=== PATIENT | female | born 2000 | race Caucasian/White ===

== ENCOUNTER 2023-07-03 15:10 | Outpatient (CLI) | payer OTHER, SELFPAY | END 2023-07-03 15:11 | disposition home or self-care (01) | LOC: NFLDREF 07-05 13:25 | PROVIDERS: Visit Provider Registered Nurse | DX: N89.8 Other specified noninflammatory disorders of vagina (principal); J02.9 Acute pharyngitis, unspecified; B37.31 Acute candidiasis of vulva and vagina | CPT/HCPCS: 87086 ==

== ENCOUNTER 2023-07-17 15:28 | Outpatient (CLI) | payer OTHER, SELFPAY ==
[2023-07-18 00:26] LABS: Chlamydia DNA Amplified* NOT DETECTED (No Detected); GC DNA Amplified* NOT DETECTED (No Detected)
== END 2023-07-17 15:29 | disposition home or self-care (01) ==
LOC: NFLDUCREF 15:28
PROVIDERS: Visit Provider Registered Nurse
DX: N89.8 Other specified noninflammatory disorders of vagina (principal)
CPT/HCPCS: 87086; 87491; 87591